=== PATIENT | male | born 1935 | race Caucasian/White ===

== ENCOUNTER 2016-11-30 16:42 | Emergency (ER) | payer MEDICARE, BC ==
[~2016-11-30] VITALS: Ht 177.8 cm; Wt 85.6 kg
[2016-11-30 16:49] VITALS: BP 141/81; PULSE 79; TEMP 97.7
--- NOTE | 2016-11-30 17:41 | PD ---
HPI . fall and laceration to right elbow Chief Complaint: Fall Time Seen by Provider: 17:40 Travel History International Travel<30 days: No Contact w/Intl Traveler<30days: No Traveled to known affect area: No History of Present Illness HPI 81-year-old male with multiple medical problems (refer to [facility]) here with complaints of tripping and falling. Patient was in his closet trying to reach a short when he somehow stumbled and fell. He came down on his right elbow and hit his right fourth digit. He is complaining of pain in the right fourth digit , where there is some ecchymosis. He is also complaining of a laceration to the right elbow. Pain is 5/10 without radiation and he declines any pain meds. He has full range of motion of his right elbow. He denies any other injuries. He denies any head injury. He denies a loss of consciousness. His was there and witnessed his response after the fall. She tells me she had difficulty getting him off the floor, however he was alert, awake, and oriented after the fall. 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 His last tetanus date is unknown. PFSH Past Medical History Hx Anticoagulant Therapy: Yes (PLAVIX 75MG PO) Arthritis: Yes (knees & ankles) Asthma: Yes (has had since a child) Autoimmune Disease: No Blood Disorders: No Anxiety: No Depression: No Heart Rhythm Problems: No Cancer: Yes (prostate 2009 s/p radiation) Cardiovascular Problems: Yes High Cholesterol: Yes Chemotherapy: No Chest Pain: No Congestive Heart Failure: No COPD: No Cerebrovascular Accident: Yes (CVA 10/2015) Diabetes: Yes (PREDIABETIC ) Patient Takes Glucophage: No Endocrine: Yes Gastrointestinal Disorders: Yes (diverticulitis 2005) GERD: No Genitourinary: Yes (FREQUENCY) Hiatal Hernia: No Hypertension: Yes Immune Disorder: No Kidney Stones: No Musculoskeletal: Yes (LEFT SIDED WEAKNESS) Neurologic: Yes (CVA 11/13) Psychiatric: No Reproductive: No Respiratory: Yes Migraines: No Radiation Therapy: Yes (PROSTATE ) Renal Failure: No Seizures: No Sickle Cell Disease: No Sleep Apnea: No Thyroid Disease: Yes (HYPO) Ulcer: No Tetanus Vaccination: Unknown Past Surgical History Abdominal Surgery: Yes (multiple hernia repair) AICD: No Arteriovenous Shunt: No Cardiac Surgery: No Ear Surgery: No Endocrine Surgery: No Eye Surgery: Yes (bilateral cataracts) Genitourinary Surgery: No Gynecologic Surgery: No Insulin Pump: No Joint Replacement: No Oral Surgery: No Pacemaker: No Thoracic Surgery: No Other Surgery: Yes (INGUINA/UMBILICAL HERNIA REP, R KNEE ARTHROSCOPY, ESTEFANÍA CATARACTS, TURP) Social History Alcohol Use: No Tobacco Use: No Substance Use: No Allergies-Medications (Allergen,Severity, Reaction): Coded Allergies: IVY Inhibitors (Verified Allergy, Intermediate, COUGH, 11/30/16) Reported Meds & Prescriptions Reported Meds & Active Scripts Active Reported Vitamin D3 (Cholecalciferol) 2,000 Unit Cap 2,000 Units PO DAILY Losartan (Losartan Potassium) 50 Mg Tab 50 Mg PO DAILY Clopidogrel (Clopidogrel Bisulfate) 75 Mg Tab 75 Mg PO DAILY Folate (Folic Acid) 1 Mg Tab 1 Mg PO DAILY Pravastatin 40 Mg Tab 40 Mg PO DAILY Levothyroxine (Levothyroxine Sodium) 50 Mcg Tab 50 Mcg PO DAILY Probiotic (Probiotic Product) 1 Cap Cap 1 Cap PO DAILY Centrum Silver Adult 50+ (Multiple Vitamins W/ Minerals) 1 Tab Tab 1 Tab PO DAILY Review of Systems General / Constitutional: No: Fever Eyes: No: Visual changes HENT: No: Headaches Cardiovascular: No: Chest Pain or Discomfort Respiratory: No: Shortness of Breath Gastrointestinal: No: Abdominal Pain Genitourinary: No: Dysuria Musculoskeletal: Positive: Pain (right 4th digit) Skin: Positive Other (right elbow laceration ), No Rash Neurologic: No: Weakness Psychiatric: No: Depression Endocrine: No: Polydipsia Hematologic/Lymphatic: No: Easy Bruising Physical Exam Narrative GENERAL: AAO x 3, no acute distress, Well-nourished, well-developed patient. SKIN: Warm and dry. No visible rashes or bruising. Laceration to the right lateral elbow. Skin tear to the right lateral elbow. laceration is v shaped with one end 5 cm, other end is 7 cm, with missing skin at the middle. HEAD: Normocephalic and atraumatic. EYES: No scleral icterus. No injection or drainage. EOM intact, PERRLA ENT: No nasal drainage noted. Mucous membranes pink. Airway patent. TM normal b/ l NECK: Supple, trachea midline. No JVD. no tenderness. CARDIOVASCULAR: Regular rate and rhythm without murmurs, gallops, or rubs. RESPIRATORY: Breath sounds equal bilaterally. No accessory muscle use. No rhonchi or rales. 3/6 aortic murmur GASTROINTESTINAL: Abdomen soft, non-tender, nondistended. EXTREMITIES: No cyanosis or edema. Right fourth digit with ecchymosis and slight displacement. Movement is normal. All other joints mobile without any abnormalities. Lightly diminished strength on the left side. right elbow fully mobile, extension and flexion is normal, no ecchymosis or edema. Left elbow with filled bursa sac. (being followed by PCP) BACK: Nontender without obvious deformity. No CVA tenderness. PSYCH: AAO x 3, normal affect. Data Data Last Documented VS Vital Signs Date Time Temp Pulse Resp B/P Pulse Ox O2 Delivery O2 Flow Rate FiO2 11/30/16 16:49 97.7 79 141/81 Orders Hand, Complete ([id number]) (11/30/16 17:46) Tetanus/Diphtheria Tox Adult (Tetanus/Di (11/30/16 18:00) Lidocaine 1% Inj (50 Ml) (Xylocaine 1% I (11/30/16 18:00) ^ Splint (11/30/16 19:36) MDM Medical Decision Making Medical Screen Exam Complete: Yes Emergency Medical Condition: Yes Medical Record Reviewed: Yes Differential Diagnosis finger fracture, elbow laceration, less likely finger dislocation Narrative Course 81-year-old male with multiple medical problems (refer to [facility]) here with complaints of tripping and falling. Patient was in his closet trying to reach a short when he somehow stumbled and fell. He came down on his right elbow and hit his right fourth digit. He is complaining of pain in the right fourth digit , where there is some ecchymosis. He is also complaining of a laceration to the right elbow. Pain is 5/10 without radiation and he declines any pain meds. He has full range of motion of his right elbow. He denies any other injuries. He denies any head injury. He denies a loss of consciousness. His was there and witnessed his response after the fall. She tells me she had difficulty getting him off the floor, however he was alert, awake, and oriented after the fall. He is left handed dominant, but cannot use his left hand due to hemiparesis s/p CVA 2016. His last tetanus date is unknown. Patient seen and examined. He does have a slight deformity of the right fourth digit and some ecchymosis. X-ray ordered. He has a laceration to the right elbow. Part of it will not be amenable to repair as the skin is torn and damaged. He will be given a tetanus shot as his last tetanus date is unknown. I offered pain medications and he declined. Last Impressions Hand X-Ray 11/30/16 9567 Signed Impressions: Service Date/Time: Wednesday, November 30, 2016 18:12 - CONCLUSION: 1. Mildly displaced intra-articular fracture distal phalanx right fourth finger Akash Summers MD discussed with Dr. Alfaro. Recommend hand outpatient, splint in ed. Discussed with patient and his , both verbalized understanding. Explained that a pin may be necessary. Ibuprofen and Tylenol PRN pain F/u with primary care for wound care referral for skin tear/laceration care. Discussed that 11 sutures will need to be removed in 7-10 days. Discussed signs of infection and what to look for. Advised if any to return to ED for f/u. Patient verbalized understanding of instructions, questions were answered, and thanked me for their care. I advised them if their condition worsens, please return to the nearest emergency room for further care. Procedures Procedure Narrative LACERATION LOCATION: right elbow LENGTH: v shaped 5 cm/7cm, with some missing skin at 7 cm end. NUMBER OF STITCHES/MIRTHA: 11 REPAIR: The area of the laceration was prepped with Betadine and sterilely draped. The laceration was infiltrated with 1% lidocaine. The wound was copiously irrigated and explored without evidence of foreign body, tendon injury or neurovascular injury. The wound was closed using 4-0 Ethilon. This was a single layer repair. A sterile dressing was applied. The patient was advised to keep the dressing clean and dry. Patient tolerated the procedure well. Diagnosis Primary Impression: Laceration of elbow, right Qualified Code: S51.011A - Laceration of elbow, right, initial encounter Additional Impression: Fracture of distal phalanx of finger of right hand Referrals: Verito Sun MD Hand Surgeon Patient Instructions: General Instructions Additional Instructions: Keep area clean and dry. Use gauze as we discussed and change 1-2 times a day. Watch for signs of infection: fever, redness, swelling, warmth, pus or drainage , red streaks around the cut, and increased pain from the area. If you received a tetanus shot, you may experience tenderness at the injection site. This is normal. Please return to emergency department if your symptoms return or worsen. Follow up with your primary care provider. You will need to see a hand surgeon. Please do so in the next 2-3 days. Not following up will likely result in improper healing and decreased function of this hand. You will also need to see your primary care doctor for f/u on the right arm wound. Sutures will need to be removed in 7-10 days. (11 sutures were placed) Use Tylenol or Motrin as needed for pain. Disposition: 01 DISCHARGE HOME Condition: Stable Karen Erickson Nov 30, 2016 17:41
[2016-11-30] MEDS ORDERED: LOSA50TA PO (17:43)
[2016-11-30] MEDS ORDERED: CLOP75TA PO (17:43)
[2016-11-30] MEDS ORDERED: LEVO50TA4 PO (17:43)
[2016-11-30] MEDS ORDERED: MULT1TAB PO (17:43)
[2016-11-30] MEDS ORDERED: VITA2000 PO (17:43)
[2016-11-30] MEDS ORDERED: FOLI1TAB4 PO (17:43)
[2016-11-30] MEDS ORDERED: PROBCAP11 PO (17:43)
[2016-11-30] MEDS ORDERED: PRAV40TA2 PO (17:43)
[2016-11-30] MEDS ORDERED: LIDOCAINE HCL 1% 50 ML VIAL INFIL ONE (18:00)
[2016-11-30] MEDS ORDERED: TETANUS/DIPHTHERIA TOXOID ADULT 0.5 ML VIAL IM ONE (18:00)
--- NOTE | 2016-11-30 19:27 | RADHPO ---
EXAM DATE/TIME: 11/30/2016 18:12 [facility] COMPARISON: No previous studies available for comparison. INDICATIONS : Fell, right hand pain, discoloration to tip of 4th finger MEDICAL HISTORY : None. SURGICAL HISTORY : None. ENCOUNTER: Initial ACUITY: 1 day PAIN SCORE: 5/10 LOCATION: Right hand FINDINGS: There is a avulsion fracture through the dorsal aspect of the distal phalanx of the fourth finger wit h overlying soft tissue swelling. Fracture extends intra-articular. CONCLUSION: 1. Mildly displaced intra-articular fracture distal phalanx right fourth finger Akash Summers MD on November 30, 2016 at 19:23 Board Certified Radiologist. This report was verified electronically.
== END 2016-11-30 19:56 | disposition home or self-care (01) ==
LOC: PHED 16:42 → PHEFT 19:56
DX: S51.011A Laceration without foreign body of right elbow, initial encounter (principal); S62.634A Displaced fracture of distal phalanx of right ring finger, initial encounter for closed fracture; I10 Essential (primary) hypertension; E07.9 Disorder of thyroid, unspecified; R73.03 Prediabetes; E78.00 Pure hypercholesterolemia, unspecified; W01.0XXA Fall on same level from slipping, tripping and stumbling without subsequent striking against object, initial encounter; Y92.008 Other place in unspecified non-institutional (private) residence as the place of occurrence of the external cause; Z23 Encounter for immunization; Z79.01 Long term (current) use of anticoagulants; Z87.39 Personal history of other diseases of the musculoskeletal system and connective tissue; Z87.09 Personal history of other diseases of the respiratory system; Z85.46 Personal history of malignant neoplasm of prostate; Z86.79 Personal history of other diseases of the circulatory system; Z87.19 Personal history of other diseases of the digestive system; Z86.69 Personal history of other diseases of the nervous system and sense organs
CPT/HCPCS: 12002; 29130; 73130; 90471; 90714

== ENCOUNTER → 2018-01-13 | Outpatient (CLI) | payer MEDICARE, BC ==
[~2018-01-13] MED LIST: CLOP75TA PO; CO Q100C9; LEVO50TA4 PO; LOSA50TA PO; MULT1TAB PO; PRAV40TA2 PO; VITA2000 PO; VITACAP7 PO; test strips
--- NOTE | 2018-01-15 12:19 | HM ---
Date Performed: 01/13/2018 Time Performed: 09:09:00 HOOKUP DATE: 01/13/18 09:09:00 AM Wed ANALYSIS START TIME: 01/13/2018 9:14:00 AM ANALYSIS END TIME: 01/14/2018 7:42:22 AM PATIENT AGE: 82 PATIENT HEIGHT PATIENT WEIGHT DRUG LIST PATIENT DIAGNOSIS: palpitations TEST NARRATIVE: The patient's average heart rate was 61 BPM. No episodes of tachycardia wer e noted. Heart rates less than 50 BPM were noted 16% of the time. No pauses exceeding 2.0 second s were noted. 3236 ventricular ectopics, which represented 4% of the total beat count, were noted . The highest ventricular ectopic frequency occurred from 11:00 AM to 12:00 PM Wed. During this zaira e 264 VE(s) occurred. Ventricular ectopics were observed as 3234 isolated beat(s) and as 1 couplet(s ). No runs were noted. Some of the ventricular beats occurred in bigeminal cycles. 5635 suprave ntricular ectopics, which represented 7% of the total beat count, were noted. The highest supraventr icular ectopic frequency occurred from 12:00 PM to 01:00 PM Wed. During this time 507 SVE(s) occurre d. No episodes of ST depression (defined as -1.0 mm or more) were noted in channel 1. No episode s of ST depression (defined as -1.0 mm or more) were noted in channel 2. No episodes of ST depressio n (defined as -1.0 mm or more) were noted in channel 3. TEST INTERPRETATION: Sinus rhythm Reccurent PVCs No pause , NO ventricular tachycardia, no supraventricular tachycardia observed There is no entry in the diary Signed b y : Artem Marques
== END ==
LOC: HCAV 08:35
PROVIDERS: ATTEND Family Medicine
DX: R00.2 Palpitations (principal)
CPT/HCPCS: 93225; 93226